=== PATIENT | male | born 1990 | race Caucasian/White ===

== ENCOUNTER 2018-10-24 23:37 | Emergency (ER) | payer SELFPAY ==
[2018-10-25 00:16] VITALS: O2SAT 96
--- NOTE | 2018-10-25 00:29 | ED.PDOC ---
History of Present Illness - General Chief Complaint: Fever Stated Complaint: fever, vomiting, cough, body aches Time Seen by Provider: 10/25/18 00:26 Source: patient Exam Limitations: no limitations - History of Present Illness Initial Comments: Patient presents with a fever and generalized body aches. He had one episode of vomiting. No abdominal pain. He has a mildly sore throat. His appetite is decreased. He says he had a temperature of 102.3 this morning. He felt fine yesterday. A child in the house is also ill with upper respiratory symptoms. His fiancee just got over an URI. No other complaints. Timing/Duration: other - 14 hours Severity: mild Improving Factors: nothing Worsening Factors: nothing Associated Symptoms: other - as in HPI Allergies/Adverse Reactions: Allergies NO KNOWN ALLERGY Allergy (Verified 10/25/18 00:35) Home Medications: Ambulatory Orders Ondansetron [Zofran Odt] 4 mg PO Q4HR PRN #14 tab 10/25/18 Oseltamivir Capsule [Tamiflu] 75 mg PO BID 5 Days #10 capsule 10/25/18 Review of Systems - Review of Systems Constitutional: States: see HPI EENTM: States: see HPI Respiratory: States: no symptoms reported Cardiology: States: no symptoms reported Gastrointestinal/Abdominal: States: no symptoms reported Genitourinary: States: no symptoms reported Musculoskeletal: States: no symptoms reported Skin: States: no symptoms reported Neurological: States: no symptoms reported Endocrine: States: no symptoms reported Hematologic/Lymphatic: States: no symptoms reported Past Medical History (General) - Patient Medical History Hx Seizures: No Hx Stroke: No Hx Dementia: No Hx Asthma: No Hx of COPD: No Hx Cardiac Disorders: No Hx Congestive Heart Failure: No Hx Pacemaker: No Hx Hypertension: No Hx Thyroid Disease: No Hx Diabetes: No Hx Gastroesophageal Reflux: No Hx Renal Disease: No Hx Cancer: No Hx of HIV: No Hx Hepatitis C: No Hx MRSA: No Surgical History: no surgical history - Vaccination History Hx Tetanus, Diphtheria Vaccination: No Hx Influenza Vaccination: No Hx Pneumococcal Vaccination: No Immunizations Up to Date: No - Social History Hx Tobacco Use: No Hx Alcohol Use: Yes - occas Family Medical History - Family History Father Family History: Unknown Physical Exam - Physical Exam General Appearance: Alert Eye Exam: bilateral normal Ears, Nose, Throat: hearing grossly normal, normal ENT inspection, pharyngeal erythema - with ulceration Neck: non-tender, full range of motion, supple, lymphadenopathy (R) - anterior cervical LAD, mobile, fluctuant, rubbery in consistency, TTP. less than 1 cm Respiratory: lungs clear, normal breath sounds Cardiovascular/Chest: normal peripheral pulses, regular rate, rhythm Gastrointestinal/Abdominal: normal bowel sounds, non tender, soft Skin Exam: normal color Progress - Progress Progress: 10/25/18 01:35 Rapid strep negative. Influenza negative. The patient vomited once in the e.r. and received Zofran ODT 4 mg x one. I believe his influenza test was a false negative, but at the very least, he is symptomatic and in contact with a known influenza case. So the risks and benefits of a course of Tamiflu was discussed and the patient opted for a course of Tamiflu. He was also given RX for Zofran. Care instructions given. E.R. warnings given. Questions were elicited and answered. Patient voiced understanding and agreement with the plan. Departure - Departure Clinical Impression: Fever Disposition: Discharge to Home or Self Care Condition: Good Departure Forms: ED Discharge - Pt. Copy, Patient Portal Self Enrollment Instructions: Flu, Adult (DC) Diet: resume usual diet, other - Increase oral fluids Activity: increase activity as tolerated Prescriptions: Ondansetron [Zofran Odt] 4 mg PO Q4HR PRN #14 tab PRN Reason: Nausea Oseltamivir Capsule [Tamiflu] 75 mg PO BID 5 Days #10 capsule Home Medications: Ambulatory Orders Ondansetron [Zofran Odt] 4 mg PO Q4HR PRN #14 tab 10/25/18 Oseltamivir Capsule [Tamiflu] 75 mg PO BID 5 Days #10 capsule 10/25/18 Additional Instructions: Take medications as prescribed. Increase oral fluids. You may use over the counter flu medications. Do NOT take aspirin. Return to the E.R. or your regular doctor if symptoms persist longer than 7-10 days.
[2018-10-25] MEDS ORDERED: ONDANSETRON ODT 8 MG TAB SL ONE (01:14)
[2018-10-25] MEDS ORDERED: ONDANSETRON ODT (ER DISP) 8 MG TAB PO ONE (01:35)
[2018-10-25] MEDS ORDERED: IBUPROFEN 200 MG TAB ONE (01:38)
[2018-10-25] MEDS ORDERED: IBUPROFEN 200 MG TAB PO ONE (01:39)
[2018-10-25 01:51] VITALS: BP 109/74; TEMP 103.3
== END 2018-10-25 01:51 | disposition home or self-care (01) ==
LOC: ER 23:37
DX: R50.9 Fever, unspecified (principal); R11.10 Vomiting, unspecified; J06.9 Acute upper respiratory infection, unspecified